=== PATIENT | female | born 1955 | race Two or more races ===

== ENCOUNTER 2024-11-28 22:54 | Emergency (ER) | payer MEDICARE, OTHER ==
[~2024-11-28] VITALS: Ht 144.8 cm; Wt 70.9 kg
[2024-11-28 23:05] VITALS: BP 139/79; PULSE 72; RESP 19; TEMP 97.9; O2SAT 98
[2024-11-28 23:33] LABS: PLATELET COUNT (AUTO) 282 K/uL (150-450); RED BLOOD CELL COUNT(AUTO) 4.37 MIL/uL (4.00-5.20); RED CELL DISTRIBUTION WIDTH 13.8 % (11.5-14.5); WHITE BLOOD COUNT (AUTO) 7.6 K/uL (4.5-11.0)
[2024-11-28 23:44] LABS: CALCIUM, TOTAL 9.4 mg/dL (8.8-10.5); CREATININE 1.27 mg/dL (0.60-1.30); GLOMERULAR FILTR. RATE CALC 42 mL/min (>60); GLUCOSE,RANDOM 207 mg/dL (70-110); SODIUM SERUM 137 mmol/L (136-145); UREA NITROGEN, BLOOD 22 mg/dL (7-18)
[2024-11-28 23:53] LABS: TROPONIN I-HIGH SENSITIVITY 35 ng/L (<51)
== END 2024-11-29 00:30 | disposition left against medical advice (07) ==
LOC: EMS 23:48
DX: R10.31 Right lower quadrant pain (principal); Z53.21 Procedure and treatment not carried out due to patient leaving prior to being seen by health care provider
CPT/HCPCS: 80048; 82962; 83690; 84484; 85025; 93005